=== PATIENT | male | born 1975 | race Caucasian/White ===

== ENCOUNTER 2019-01-31 17:25 | Emergency (ER) | payer OTHER ==
[~2019-01-31] VITALS: Ht 177.8 cm; Wt 86.2 kg
[2019-01-31] MEDS ORDERED: CONEX TABLET1 EACH (18:51)
[2019-01-31] MEDS ORDERED: TILENOR (18:51)
== END 2019-01-31 22:03 | disposition home or self-care (01) ==
LOC: ER 17:25
DX: J06.9 Acute upper respiratory infection, unspecified (principal); M25.512 Pain in left shoulder

== ENCOUNTER 2024-12-11 18:59 | Emergency (ER) | payer OTHER ==
[~2024-12-11] VITALS: Ht 177.8 cm; Wt 98.9 kg
[~2024-12-11 18:59] MED LIST: CONEX TABLET1 EACH; TILENOR
[2024-12-11] MEDS ORDERED: NEURONTIN800 MG PO (20:08)
[2024-12-11] MEDS ORDERED: KETOROLAC TROMETHAMINE 60 MG VIAL IM ONE ×2 (20:30→20:44)
== END 2024-12-11 22:20 | disposition home or self-care (01) ==
LOC: ER 18:59
DX: S69.82XA Other specified injuries of left wrist, hand and finger(s), initial encounter (principal); W18.39XA Other fall on same level, initial encounter; Y93.89 Activity, other specified; Y92.018 Other place in single-family (private) house as the place of occurrence of the external cause; S49.82XA Other specified injuries of left shoulder and upper arm, initial encounter; S59.812A Other specified injuries left forearm, initial encounter